=== PATIENT | female | born 1975 | race Caucasian/White ===

== ENCOUNTER 2016-04-02 12:08 | Outpatient (CLI) | payer BC ==
[~2016-04-02] VITALS: Ht 157.5 cm; Wt 80.7 kg
[~2016-04-02 12:08] MED LIST: CEPHALEXIN500 M1 PO; COREG 3.123.125 MG/T PO; IBREN600 MG PO; LOPRESSOR 225 MG/TAB PO; MOTRIN 600600 MG/TAB PO; PERCOCET 325 MG1 TA2 PO; PRENATAL1 TA1 PO; ZOFRAN8 MG PO
== END 2016-04-02 13:00 | disposition home or self-care (01) ==
LOC: LDRO 12:08
DX: O36.8130 Decreased fetal movements, third trimester, not applicable or unspecified (principal); Z3A.38 38 weeks gestation of pregnancy

== ENCOUNTER 2016-04-06 02:16 | Inpatient (IN) | payer BC ==
[~2016-04-06] VITALS: Ht 157.5 cm; Wt 80.5 kg
[2016-04-06] VITALS (19 sets, daily range): BP systolic 102–148; BP diastolic 55–90; PULSE 73–105; TEMP 97.7–98.3
[2016-04-06 03:06] LABS: BASO % 0.3 % (0.0-2.0); EOS # 0.1 (0.0-0.7); EOS % 1.3 % (0-4.0); GRAN # 5.1 (1.4-6.5); GRAN % 68.7 % (42.2-75.2); HEMATOCRIT 38.6 % (37.0-47.0); HEMOGLOBIN 13.1 g/dl (12.5-16.0); LYMPH # 1.7 (1.2-3.4); LYMPH % 22.3 % (20.0-51.0); MEAN CELL VOLUME 87 fl (80.0-100.0); MEAN CORPUSCULAR HEMOGLOBIN 29 pg (27.0-31.0); MEAN CORPUSCULAR HGB CONC 34 g/dl (33.0-37.0); MEAN PLATELET VOLUME 8.9 fl (7.4-10.4); MONO # 0.5 (0.1-0.6); PLATELET COUNT 195 K/mm3 (130-400); RED BLOOD COUNT 4.45 M/mm3 (4.10-5.30); REDCELL DISTRIBUTION WIDTH-CV 13.2 % (11.5-14.5); WHITE BLOOD COUNT 7.4 K/mm3 (4.8-10.8)
[2016-04-07 08:10] VITALS: BP 106/65; PULSE 81; TEMP 98.4
[2016-04-07 19:40] VITALS: BP 118/63; PULSE 86; TEMP 98.4
[2016-04-08 07:26] VITALS: BP 114/72; PULSE 74; TEMP 98.1
[2016-04-08 11:12] LABS: MEAN CELL VOLUME 90 fl (80.0-100.0); MEAN CORPUSCULAR HGB CONC 33 g/dl (33.0-37.0); MEAN PLATELET VOLUME 9.3 fl (7.4-10.4); PLATELET COUNT 176 K/mm3 (130-400); RED BLOOD COUNT 3.07 M/mm3 (4.10-5.30); REDCELL DISTRIBUTION WIDTH-CV 13.5 % (11.5-14.5); WHITE BLOOD COUNT 8.8 K/mm3 (4.8-10.8)
[2016-04-08 11:27] LABS: ADD PATHOLOGY DIFF REVIEW NO; HEMATOCRIT 27.6 % (37.0-47.0); HEMOGLOBIN 9.1 g/dl (12.5-16.0); MEAN CORPUSCULAR HEMOGLOBIN 30 pg (27.0-31.0)
[2016-04-08 11:50] LABS: BAND 6 % (0-10); EOSINOPHIL 2 % (0-4); NEUTROPHILS 61 % (42.0-75.2); PLATELET ESTIMATE NORMAL (NORMAL); TOTAL CELLS COUNTED 100
[2016-04-08 16:48] VITALS: BP 135/77; PULSE 89; TEMP 98
== END 2016-04-08 20:10 | disposition home or self-care (01) | DRG 775 ==
LOC: LDRO 02:16 → LDR 02:54 → OB 06:20
PROVIDERS: Obstetrics & Gynecology
PROC: 10E0XZZ Delivery of Products of Conception, External Approach (ICD-10-PCS; principal; 2016-04-06)
PROC: 0KQM0ZZ Repair Perineum Muscle, Open Approach (ICD-10-PCS; 2016-04-06)
DX: O34.211 Maternal care for low transverse scar from previous cesarean delivery (principal); N85.8 Other specified noninflammatory disorders of uterus; O36.1930 Maternal care for other isoimmunization, third trimester, not applicable or unspecified; O70.1 Second degree perineal laceration during delivery; O09.523 Supervision of elderly multigravida, third trimester; O09.43 Supervision of pregnancy with grand multiparity, third trimester; Z3A.38 38 weeks gestation of pregnancy; Z37.0 Single live birth
CPT/HCPCS: J2210; J2590; J7120

== ENCOUNTER 2018-01-05 13:50 | Emergency (ER) | payer SELFPAY ==
[~2018-01-05] VITALS: Ht 157.5 cm; Wt 68.2 kg
[2018-01-05 14:04] VITALS: BP 142/81; TEMP 99
[2018-01-05 15:07] LABS: COLLECTION METHOD CLEAN CATCH
[2018-01-05 15:14] LABS: PH 6 (5-8); URINE APPEARANCE Clear; URINE BACTERIA None Seen /hpf; URINE BILIRUBIN Negative (NEGATIVE); URINE BLOOD 2+ (NEGATIVE); URINE COLOR Yellow; URINE GLUCOSE Negative (NEGATIVE); URINE KETONE Negative (NEGATIVE); URINE LEUKOCYTE ESTERASE Negative (NEGATIVE); URINE NITRATE Negative (NEGATIVE); URINE PROTEIN(semi-quant) Negative (NEGATIVE); URINE UROBILINOGEN Negative (NEGATIVE)
[2018-01-05 15:29] LABS: BASO % 0.4 % (0.0-2.0); EOS # 0.3 (0.0-0.7); GRAN # 5.1 (1.4-6.5); GRAN % 68.8 % (42.2-75.2); HEMATOCRIT 44.8 % (37.0-47.0); HEMOGLOBIN 15.4 g/dl (12.5-16.0); LYMPH # 1.6 (1.2-3.4); LYMPH % 20.9 % (20.0-51.0); MEAN CELL VOLUME 86 fl (80.0-100.0); MEAN CORPUSCULAR HEMOGLOBIN 29 pg (27.0-31.0); MEAN CORPUSCULAR HGB CONC 34 g/dl (33.0-37.0); MEAN PLATELET VOLUME 9.1 fl (7.4-10.4); MONO # 0.4 (0.1-0.6); MONO % 5.6 % (1.7-9.3); PLATELET COUNT 239 K/mm3 (130-400); RED BLOOD COUNT 5.24 M/mm3 (4.10-5.30)
[2018-01-05 16:36] VITALS: PULSE 69
== END 2018-01-05 16:37 | disposition home or self-care (01) ==
LOC: COL.ER 13:50
PROVIDERS: Nurse Practitioner
DX: O20.0 Threatened abortion (principal); Z3A.09 9 weeks gestation of pregnancy

== ENCOUNTER 2018-12-09 07:25 | Inpatient (IN) | payer OTHER ==
[~2018-12-09] VITALS: Ht 157.5 cm; Wt 79.1 kg
[2018-12-09] VITALS (35 sets, daily range): BP systolic 117–196; BP diastolic 56–91; PULSE 66–106; TEMP 97.3–98.2
--- NOTE | 2018-12-09 06:30 | NUR ---
PATIENT TO LR 1 FOR INDUCTION OF DEMISE. PATIENT ON EFM TOCO, VITALS OBTAINED, PATIENT ASKS QUESTIONS, ANSWERED BY THIS NURSE, IV STARTED, CONSENSTS OBTAINED
[2018-12-09 09:09] LABS: BASO % 0.4 % (0.0-2.0); EOS # 0.3 (0.0-0.7); EOS % 5.1 % (0-4.0); GRAN # 3.1 (1.4-6.5); GRAN % 59.5 % (42.2-75.2); HEMATOCRIT 40.2 % (37.0-47.0); HEMOGLOBIN 13.5 g/dl (12.5-16.0); LYMPH # 1.5 (1.2-3.4); LYMPH % 28.9 % (20.0-51.0); MEAN CELL VOLUME 88 fl (80.0-100.0); MEAN CORPUSCULAR HEMOGLOBIN 30 pg (27.0-31.0); MEAN CORPUSCULAR HGB CONC 34 g/dl (33.0-37.0); MEAN PLATELET VOLUME 9.4 fl (7.4-10.4); MONO # 0.3 (0.1-0.6); MONO % 5.9 % (1.7-9.3); PLATELET COUNT 201 K/mm3 (130-400); RED BLOOD COUNT 4.55 M/mm3 (4.10-5.30)
[2018-12-09 09:23] LABS: ALBUMIN 4.2 gm/dL (3.5-5.0); BILIRUBIN,TOTAL 0.3 mg/dL (0.0-1.0); CALCIUM 9.3 mg/dL (8.4-10.2); CREATININE, serum 0.49 (0.52-1.25); TOTAL PROTEIN 8.3 gm/dL (6.4-8.2)
[2018-12-09 10:09] LABS: PROTHROMBIN TIME 11.6 SECONDS (9.7-12.8)
[2018-12-09 10:26] LABS: FIBRINOGEN 445 mg/dL (200-450)
[2018-12-09 10:33] LABS: D-DIMER < 200.00 ng/mLDDu (200-230)
--- NOTE | 2018-12-09 11:50 | NUR ---
PATIENT OFF EFM FROM [id number]. PATIENT AMBULATING IN HALLS. PATIENT ROCKING IN CHAIR. PATIENT DENIES CONTRACTIONS OR CRAMPY
--- NOTE | 2018-12-09 15:10 | NUR ---
[id number] PATIENT OFF EFM AMBULATING IN HELLER AND IN KNEE CHEST ON BIRTHING BALL
--- NOTE | 2018-12-09 15:21 | NUR ---
central office worker met with patient's nurse and it is advised that addiction social worker is not needed at this time.
--- NOTE | 2018-12-09 16:45 | NUR ---
PATIENT ASKED TO USE THE BATHROOM, BUT WANTED THIS NURSE TO CHECK DIALATION FIRST. THIS NURSE ASKED PATIENT TO MOVE FROM BALL TO BED. SVE PREFORMED. WHEN THIS NURSE INSERTED HAND, BAG OF WATER RUPTURED IN HAND. BLEEDING NOTED. PATIENT STARTED YELLING AND WANTED ME TO END MY EXAM. DIALATION UNKNOWN PER PATIENTS REQUEST. DR LOREDO NOTIFIED. MOTHER TO BED IN KNEE CHEST WITH BIRTHING BALL UNDER BELLY PER HER REQUEST.
--- NOTE | 2018-12-09 18:00 | NUR ---
OXYTOCIN AT 100 MLS/ HR
--- NOTE | 2018-12-09 18:30 | NUR ---
DR. LOREDO AT BEDSIDE. PT STATES INTERMITTENT CONTRACTIONS THAT ARE SOMETIMES MILD BUT AT OTHER TIMES MORE INTENSE. HIGH DOSE PITOCIN CONTINUES TO INFUSE AT [address] LOREDO[address]
--- NOTE | 2018-12-09 18:45 | NUR ---
DR. LOREDO IN ROOM TO ASSESS PT, PT STATES SHE IS FEELING MORE UNCOMFORTABLE WITH INTERMITTENT CONTRACTIONS.
--- NOTE | 2018-12-09 18:53 | NUR ---
185- SPONTANEOUS VAGINAL DELIVERY OF DEMISE, CORD DETACHED BY DR. LOREDO, FETUS HELD BRIEFLY BY MOTHER. FETUS THEN WRAPPED IN BLANKET, PLACED ON RADIANT WARMER, HEAT OFF. PERICARE PERFORMED, WARM BLANKETS ON PT AWAITING DELIVERY OF [facility]. 1909- [facility] HAS NOT DELIVERED, PITOCIN INCREASED TO [address] LOREDO[address] CONTINUE TO MONITOR FOR DELIVERY OF [facility].
--- NOTE | 2018-12-09 19:15 | NUR ---
0- CONTINUE TO WAIT FOR DELIVERY OF PL[facility]. DR. LOREDO DISCUSSES OPTIONS WITH PT, PT OPTS TO REMAIN ON HIGH DOSE PITOCIN IN HOPES FOR SPONTANEOUS DELIVERY OF PLACENTA VERSUS D&C. PITOCIN INCREASED TO [address] LOREDO[address] TO FACUNDO OUT OF ROOM BUT REMAINS ON UNIT.
--- NOTE | 2018-12-09 19:30 | NUR ---
CONTINUED DIFFICULTY TRACING CONTRACTIONS DUE TO MATERNAL POSITION AND GESTATION. PT STATES FEELING INTERMITTENT MILD CONTRACTIONS. TOCO ADJUSTED, PITOCIN CONTINUES AT 200 MILLIUNITS. BLEEDING WNL.
--- NOTE | 2018-12-09 20:00 | NUR ---
1955- DR. LOREDO IN ROOM TO EVALUATE PT. SVE PERFORMED, [facility] REMAINS ATTACHED AT THIS TIME. PITOCIN INCREASED TO [address] LOREDO, WILL ALLOW MORE TIME FOR [facility] TO DELIVERY SPONTANEOUSLY. DR. LOREDO LEAVES UNIT AT THIS TIME. INSTRUCTED TO CONTACT IF [facility] DELIVERS OR BLEEDING INCREASES. WILL RETURN TO EVALUATE LATER.
--- NOTE | 2018-12-09 20:30 | NUR ---
CONTINUED DIFFICULTY TRACING CONTRACTIONS, TOCO ADJUSTED. PT CONTINUES TO STATE INTERMITTENT MILD CONTRACTIONS. PITOCIN REMAINS AT 300 MILLIUNITS.
--- NOTE | 2018-12-09 21:30 | NUR ---
2117- DR. LOREDO CALLS UNIT FOR UPDATE. NOTIFIED OF BLEEDING, PITOCIN RUNNING AT 300 MILLIUNITS. [facility] REMAINS ATTACHED. PT STATED AGAIN TO THIS NURSE THAT SHE DOESN'T WANT A D&C. DR. LOREDO OK WITH CONTINUING TO MONITOR FOR AN ADDITIONAL HOUR AND TO INCREASE PITOCIN TO 400 MILLIUNITS AT THIS TIME. 2118- PITOCIN INCREASED TO 400 MILLIUNITS.
--- NOTE | 2018-12-09 22:35 | NUR ---
2201- PT OFF MONITORS TO USE BATHROOM. 2210- WHILE USING THE BATHROOM PT STATES SHE FEELS SOMETHING "HARD" COMING OUT OF HER VAGINA. THIS NURSE ABLE VISUALIZE PARTIALLY DELIVERED PLACENTA. DR. LOREDO NOTIFIED. 2214- INTACT [facility] DELIVERED SPONTANEOUSLY WHILE PT ON THE TOILET. PT REMAINS IN BATHROOM WITH THIS NURSE STATING SHE NEEDS TO VOID. 2224- DR. LOREDO IN ROOM TO EVALUATE PT. PT ASSISTED BACK TO BED FOR EXAM. DR. LOREDO STATES [facility] IS INTACT. DISCUSSES PLACING PT ON METHERGINE PO FOR 24 HOURS, PT AGREES WITH PLAN OF CARE. 2239- RECOVERY STARTED.
[2018-12-10] VITALS (8 sets, daily range): BP systolic 99–109; BP diastolic 47–78; PULSE 71–95; TEMP 99.4
--- NOTE | 2018-12-10 10:45 | NUR ---
Patient given discharge instructions and patient agrees/understands and signs papers. 1050: Paper signed for release of fetus in order for patient to take fetus home. Patient already has /burial arrangements made. Fetus given to patient/spouse and father places in casket and ambulatory off unit with fetus at this time. 1105: Patient off unit via wheelchair with this RN and spouse.
== END 2018-12-10 11:05 | disposition home or self-care (01) | DRG 779 ==
LOC: LDR 07:25 → OB 07:25 → LDR 08:25 → OB 12-10 01:46
PROVIDERS: ADMIT Obstetrics & Gynecology
PROC: 10E0XZZ Delivery of Products of Conception, External Approach (ICD-10-PCS; principal; 2018-12-09)
PROC: 3E0P7VZ Introduction of Hormone into Female Reproductive, Via Natural or Artificial Opening (ICD-10-PCS; 2018-12-09)
DX: O02.1 Missed abortion (principal); O34.219 Maternal care for unspecified type scar from previous cesarean delivery; O99.612 Diseases of the digestive system complicating pregnancy, second trimester; K21.9 Gastro-esophageal reflux disease without esophagitis; Z23 Encounter for immunization
CPT/HCPCS: J2590; J7120